=== PATIENT | male | born 1950 | race Caucasian/White ===

== ENCOUNTER 2018-12-15 23:54 | Emergency (ER) | payer MEDICARE, OTHER ==
[2018-12-16 00:04] VITALS: RESP 18
[2018-12-16] MEDS ORDERED: SODIUM CHLORIDE 0.9% 1,000 ML IV STA ×2 (00:30)
[2018-12-16] MEDS ORDERED: LABETALOL SYRINGE 5 MG/ML IVP STA (00:32)
--- NOTE | 2018-12-16 00:54 | ED ---
Recheck HPI - General Chief Complaint: Recheck/Abnormal Lab/Rx Stated Complaint: High blood pressure Time Seen by Provider: 12/16/18 00:06 Source: patient, RN notes reviewed, old records reviewed Mode of arrival: ambulatory Limitations: no limitations - History of Present Illness Initial Comments: Kalpesh is a 68-year-old male who presents today with concerns for elevated blood pressure. Patient reports that he was going to his primary care doctor's office earlier this week for evaluation for increased forgetfulness throughout the day. He reports he's been having this for the past 2 weeks. Patient presents today after the total diagnosed with high blood pressure that time. They sent him home with a blood pressure cuff. Patient has been monitoring his blood pressure and throughout the past 4 days they've been elevated. They've been up to 210/120. Patient has history of hypothyroid after thyroidectomy and does take thyroid replacement pills. He denies chest pain shortness of breath. He denies significant headache. Patient states she's been in his room us. In mood. He states that he has no abdominal pain arm pain or paresthesias. - Related Data Previous Rx's Medication Instructions Recorded amLODIPine [Norvasc] 5 mg PO DAILY #14 tab 12/16/18 Allergies Allergy/AdvReac Type Severity Reaction Status Date / Time No Known Allergies Allergy Verified 12/16/18 00:04 Review of Systems ROS Statement: Those systems with pertinent positive or pertinent negative responses have been documented in the HPI. ROS Other: All systems not noted in ROS Statement are negative. Past Medical History Past Medical History: Hypertension, Thyroid Disorder History of Any Multi-Drug Resistant Organisms: None Reported Additional Past Surgical History / Comment(s): Thyroid removed. Past Psychological History: No Psychological Hx Reported Smoking Status: Never smoker Past Alcohol Use History: None Reported Past Drug Use History: None Reported General Exam Limitations: no limitations General appearance: alert, in no apparent distress Head exam: Present: atraumatic, normocephalic, normal inspection Eye exam: Present: normal appearance, PERRL, EOMI. Absent: scleral icterus, conjunctival injection, periorbital swelling ENT exam: Present: normal exam, mucous membranes moist Neck exam: Present: normal inspection. Absent: tenderness, meningismus, lymphadenopathy Respiratory exam: Present: normal lung sounds bilaterally. Absent: respiratory distress, wheezes, rales, rhonchi, stridor Cardiovascular Exam: Present: regular rate, normal rhythm, normal heart sounds, systolic murmur. Absent: diastolic murmur, rubs, gallop, clicks GI/Abdominal exam: Present: soft, normal bowel sounds. Absent: distended, tenderness, guarding, rebound, rigid Extremities exam: Present: normal inspection, full ROM, normal capillary refill. Absent: tenderness, pedal edema, joint swelling, calf tenderness Back exam: Present: normal inspection Neurological exam: Present: alert, oriented X3, CN II-XII intact Psychiatric exam: Present: normal affect, normal mood Skin exam: Present: warm, dry, intact, normal color. Absent: rash Course Vital Signs 12/16/18 12/16/18 00:00 01:49 Temperature 98.5 F Pulse Rate 86 68 Respiratory 18 18 Rate Blood Pressure 209/124 176/93 O2 Sat by Pulse 97 96 Oximetry Medical Decision Making - Medical Decision Making 68-year-old male presents emergency murmurs they have persistent hypertension. He reports that he was told he is hypertensive 4 days ago. She has been monitoring his blood pressure at home with cough. He wrecked the emergency department with blood pressure 200/120. Also complains of past 4 weeks he has been having increased forgetfulness. The Patient has no neurological deficits. Otherwise appears well. Alert and oriented 3. He denies any chest pain or any other symptoms. EKG was reviewed. Negative for any acute abnormalities. No ST changes. Patient again denies chest pain. I Do hear a systolic murmur grade's 2 out of 6. Patient is has never been told he has a heart murmur before. Patient was given 20 mg of IV labetalol. Blood pressure came down to 176/90. I did not want to drop blood pressure much lower, only wanting a 20 -30 % decrease in MAP. Patient's kidney function was reviewed and normal. Chest x- ray shows no acute process. CT of the brain shows chronic ischemic vessel disease and cerebral atrophy. No acute abnormalities. Patient was informed of all these results. I discussed the Patient will be started on Norvasc and close follow-up with his primary care physician. He does have an appointment this week. Patient agrees to treatment plan will comply. Strict return parameters were discussed. I discussed the case with Dr. HESS. - Lab Data Result diagrams: 12/16/18 01:01 Lab Results 12/16/18 12/16/18 Range/Units 01:01 01:20 Sodium 137 (137-145) mmol/L Potassium 4.2 (3.5-5.1) mmol/L Chloride 108 H (98-107) mmol/L Carbon Dioxide 19 L (22-30) mmol/L Anion Gap 10 mmol/L BUN 12 (9-20) mg/dL Creatinine 0.80 (0.66-1.25) mg/dL Est GFR (CKD-EPI)AfAm >90 (>60 ml/min/1.73 sqM) Est GFR (CKD-EPI)NonAf >90 (>60 ml/min/1.73 sqM) Glucose 123 H (74-99) mg/dL Calcium 9.0 (8.4-10.2) mg/dL Magnesium 1.9 (1.6-2.3) mg/dL Total Bilirubin 0.7 (0.2-1.3) mg/dL AST 50 (17-59) U/L ALT 41 (21-72) U/L Alkaline Phosphatase 66 (38-126) U/L Total Protein 7.5 (6.3-8.2) g/dL Albumin 4.1 (3.5-5.0) g/dL Urine Color Light Yellow Urine Appearance Clear (Clear) Urine pH 5.5 (5.0-8.0) Ur Specific [place] 1.005 (1.001-1.035) Urine Protein Negative (Negative) Urine Glucose (UA) Negative (Negative) Urine Ketones Negative (Negative) Urine Blood Negative (Negative) Urine Nitrite Negative (Negative) Urine Bilirubin Negative (Negative) Urine Urobilinogen <2.0 (<2.0) mg/dL Ur Leukocyte Esterase Negative (Negative) 12/16/18 01:48 EKG shows normal sinus rhythm with possible left atrial enlargement. Anterior sick for second block. Left ventricular hypertrophy. Prolonged QT. Ventricular rate of 80 bpm. Was 184. QRS ration 116. QTQTC of 424/49 ms. - Radiology Data Radiology results: report reviewed Chest x-ray. No changes. Cervical atrophy and chronic small vessel ischemia. No acute intracranial normality. Disposition Clinical Impression: Hypertension Disposition: HOME SELF-CARE Condition: Good Instructions: Hypertension (ED) Additional Instructions: He should monitor your blood pressure throughout the day, especially with starting this new blood pressure medication. Patient should have follow-up with cardiology and primary care physician. Return to the emergency department if any alarming signs or symptoms occur. Prescriptions: amLODIPine [Norvasc] 5 mg PO DAILY #14 tab Is patient prescribed a controlled substance at d/c from ED?: No Referrals: [facility],Clinic [Primary Care Provider] - 1-2 days Time of Disposition: 02:17
[2018-12-16 01:21] LABS: Anion Gap 10 mmol/L; Carbon Dioxide 19 mmol/L (22-30); Chloride 108 mmol/L (98-107); Glucose 123 mg/dL (74-99); Sodium 137 mmol/L (137-145)
[2018-12-16 01:23] LABS: AST 50 U/L (17-59); Albumin 4.1 g/dL (3.5-5.0); Blood Urea Nitrogen 12 mg/dL (9-20); Magnesium 1.9 mg/dL (1.6-2.3); Potassium 4.2 mmol/L (3.5-5.1); Total Bilirubin 0.7 mg/dL (0.2-1.3); Total Protein 7.5 g/dL (6.3-8.2)
[2018-12-16 01:24] LABS: ALT 41 U/L (21-72); Alkaline Phosphatase 66 U/L (38-126)
[2018-12-16 01:34] LABS: Appearance,Urine Clear (Clear); Bilirubin,Urine Negative (Negative); Blood,Urine Negative (Negative); Color,Urine Light Yellow; Glucose,Urine (UA) Negative (Negative); Ketones,Urine Negative (Negative); Leukocyte Esterase,Urine Negative (Negative); Nitrite,Urine Negative (Negative); PH, Urine 5.5 (5.0-8.0); Protein,Urine Negative (Negative); Specific Gravity,Urine 1.005 (1.001-1.035); Urobilinogen,Urine <2.0 mg/dL (<2.0)
--- NOTE | 2018-12-16 01:41 | XR ---
EXAMINATION TYPE: XR chest 2V DATE OF EXAM: 12/16/2018 COMPARISON: 04/28/2014 HISTORY: Hypertension chest pain TECHNIQUE: Frontal and lateral views of the chest are obtained. FINDINGS: Heart and mediastinum are normal. Lungs are clear. Diaphragm is normal. There are chest le ads. Bony thorax is intact. IMPRESSION: Normal chest. No change.
--- NOTE | 2018-12-16 01:44 | CT ---
EXAMINATION TYPE: CT brain wo con DATE OF EXAM: 12/16/2018 COMPARISON: None HISTORY: hypertension headache CT DLP: 1099.4 mGycm Automated exposure control for dose reduction was used. FINDINGS: There is cerebral cortical atrophy. There is patchy hypodensity in the periventricular white matter. There is no mass effect nor midline shift. There is no sign of intracranial hemorrhage. The calvarium is intact. IMPRESSION: CEREBRAL ATROPHY AND CHRONIC SMALL VESSEL ISCHEMIA. NO ACUTE INTRACRANIAL ABNORMALITY.
[2018-12-16 01:51] VITALS: BP 176/93
[2018-12-16 06:00] VITALS: PULSE 80
[2018-12-16 06:01] VITALS: TEMP 97.7
== END 2018-12-16 02:47 | disposition home or self-care (01) ==
LOC: EC 23:54
DX: I10 Essential (primary) hypertension (principal); I67.82 Cerebral ischemia; G31.9 Degenerative disease of nervous system, unspecified
CPT/HCPCS: 36415; 70450; 71046; 80053; 81003; 83735; 93005; 96361; 96374; 99284

== ENCOUNTER → 2019-04-03 | Outpatient (CLI) | payer OTHER ==
--- NOTE | 2019-04-03 22:08 | CT ---
EXAMINATION TYPE: CT angio chest DATE OF EXAM: 04/03/2019 COMPARISON: NONE HISTORY: Pt states US has shown leaky bicuspid aortic valve. Hx hypertension CT DLP: 442.80 mGycm. Automated Exposure Control for Dose Reduction was Utilized. CONTRAST: CTA scan of the thorax is performed with IV Contrast, patient injected with 100 mL of Isovue 370, pul monary embolism protocol. 3-D reconstructed Images are created on an independent workstation and revi ewed. FINDINGS: LUNGS: The lungs are grossly clear, there is no concerning parenchymal mass or nodule identified. T here is no pleural effusion or pneumothorax seen. The tracheobronchial tree is patent. MEDIASTINUM: There are no greater than 1 cm hilar or mediastinal lymph nodes. Prominent but subcenti meter anterior superior mediastinal lymph node noted image 15. No cardiomegaly or pericardial effusio n is seen. Coronary artery calcification is present which is noted marker frontal and coronary artery disease. Main pulmonary artery at bifurcation measures 2.9 cm axial image 28. The descending aorta m easures up to 3.1 cm in diameter. There is normal 3 vessel origins from arch. No aneurysmal change an d arch or descending aorta is present. Thyroid gland is small in size or atrophic in appearance, roxy elate clinically OTHER: Liver is diffusely low dense consistent with fatty infiltration. There is prominent 4.5 cm gas tric diverticulum with air-fluid level near region of left adrenal gland axial image 58. Moderate-to- severe multilevel spurring in the thoracic spine is present. IMPRESSION: No aneurysmal change of the aorta. No cardiomegaly or left ventricular hypertrophy identi fied.
== END ==
LOC: RADCTMAIN 17:13
PROVIDERS: ATTEND Internal Medicine Interventional Cardiology
DX: Q23.1 Congenital insufficiency of aortic valve (principal)
CPT/HCPCS: 71275; Q9967

== ENCOUNTER → 2019-04-10 | Outpatient (CLI) | payer OTHER ==
--- NOTE | 2019-04-10 20:16 | CONS ---
CONSULTATION . DATE OF SERVICE: 04/10/2019 68-year-old gentleman has been evaluated in the sleep center for possible obstructive sleep apnea-hypopnea syndrome HISTORY OF PRESENT ILLNESS/SLEEP WAKE EVALUATION: Patient usual sleep schedule from 10 p.m. to 6:30 a.m. basically 7 days a week. No problem with falling asleep. No TV in bedroom, usually sleeps on the side position. The patient sleeps by himself. Presently, he knows that he has history of loud snoring in the past. Presently, he wakes up from sleep 1-2 times with nocturia. In the morning sometimes feels tiredness and sleepiness. [place] Sleepiness Scale is 3. PAST MEDICAL HISTORY: Positive for hypertension, sinus problems, hypothyroidism after thyroidectomy. PAST SURGICAL HISTORY: Thyroidectomy, nasal surgery. MEDICATIONS: Synthroid, metoprolol, naproxen, hydrochlorothiazide, amlodipine. SOCIAL HISTORY: Negative for smoking. Alcohol consumption rarely. FAMILY HISTORY: Family history: Hypertension, heart problems and hyperlipidemia. REVIEW OF SYSTEMS: Awakenings from sleep, sometimes tiredness and sleepiness after awakening during the day. PHYSICAL EXAM: gentleman without distress. BP 140/79, HR 72, RR 16, height 5 feet 10 inches, weight 206.8 pounds, body mass index 29.7, temperature 97.1, oxygen saturation at room air 95%. Oropharynx extremely low position of soft palate. Mallampati 4. Restriction of nasal breathing. Wide neck, 17 and one half inches in circumference. Neck Supple, no JVD. Thyroid is not palpable. LUNGS Clear to percussion and to auscultation. Good air exchange. No wheezing or rhonchi. HEART S1, S2 regular. Systolic murmur. ABDOMEN: Slightly obese. Soft and nontender. Bowel sounds are present. No organomegaly appreciated. EXTREMITIES No clubbing or cyanosis. [employer] Awake, alert, and oriented X3. Cranial nerves 2 to 7 intact. There is no fasciculation or atrophy. noted. No focal deficits observed. IMPRESSION: 1. Snoring, awakenings from sleep, extremely low position of soft palate, wide neck episodes of sleepiness during the day, obstructive sleep apnea-hypopnea syndrome. 2. Overweight, borderline to obesity, body mass index 29.7. 3. Hypertension. 4. Hypothyroidism after thyroidectomy more than 20 years ago. 5. Status post nasal surgery. 6. Restriction of nasal breathing, possibly nasal septum deviation. 7. Shoulder problems. PLAN: 1. Polysomnography for evaluation of patient's breathing during sleep. 2. CPAP/BiPAP titration if sleep study confirms obstructive sleep apnea-hypopnea syndrome. 3. Preferable position during sleep on the side. 4. No driving if patient feels any sleepiness. 5. I will see patient for follow up visit to explain results of testing and following plan. 6. Followup visit after sleep study to discuss results of the sleep study and possibly fit the patient with the mask she has history of . Scott Krishna MD, PhD, FAASM Diplomat of [employer] [facility] [facility] [place] MMODL / IJN: [id number] /
== END ==
LOC: SLEEP 13:43
PROVIDERS: ATTEND Internal Medicine
DX: G47.33 Obstructive sleep apnea (adult) (pediatric) (principal); I10 Essential (primary) hypertension; E89.0 Postprocedural hypothyroidism; J98.8 Other specified respiratory disorders; R29.898 Other symptoms and signs involving the musculoskeletal system; E66.9 Obesity, unspecified; Z68.29 Body mass index [BMI] 29.0-29.9, adult; Z98.890 Other specified postprocedural states; Z79.899 Other long term (current) drug therapy
CPT/HCPCS: 99211

== ENCOUNTER 2021-12-06 09:28 | Inpatient (IN) | payer OTHER, MEDICARE ==
--- NOTE | 2021-12-06 10:17 | ED ---
General Adult HPI - General Chief complaint: Eye Problems Stated complaint: vision loss, right eye Time Seen by Provider: 12/06/21 09:48 Source: patient, RN notes reviewed, old records reviewed Mode of arrival: ambulatory Limitations: no limitations - History of Present Illness Initial comments: 71-year-old male presenting with chief complaint of visual loss. Symptoms began yesterday morning when the patient woke. He states that there is a large sec tion of his central vision in only his right eye that was opaque and hazy. He denies pain. Denies injury. Patient had no previous eye complaints. He denies any headache. Denies fever. Denies any unilateral numbness or weakness. He is not on any anticoagulation, no antiplatelet medications. No injury to the eye. - Related Data Home Medications Medication Instructions Recorded Confirmed Ascorbic Acid [Vitamin C] 500 mg PO DAILY 12/06/21 12/06/21 Cholecalciferol [Vitamin D3 (25 25 mcg PO DAILY 12/06/21 12/06/21 Mcg = 1000 Iu)] Cyanocobalamin (Vitamin B-12) 1,000 mcg PO DAILY 12/06/21 12/06/21 [Vitamin B-12] Levothyroxine Sodium [Synthroid] 150 mcg PO DAILY 12/06/21 12/06/21 amLODIPine [Norvasc] 10 mg PO DAILY 12/06/21 12/06/21 Allergies Allergy/AdvReac Type Severity Reaction Status Date / Time No Known Allergies Allergy Verified 12/06/21 12:22 Review of Systems ROS Statement: Those systems with pertinent positive or pertinent negative responses have been documented in the HPI. ROS Other: All systems not noted in ROS Statement are negative. Past Medical History Past Medical History: Hypertension, Thyroid Disorder History of Any Multi-Drug Resistant Organisms: None Reported Additional Past Surgical History / Comment(s): Thyroid removed. Past Psychological History: No Psychological Hx Reported Smoking Status: Never smoker Past Alcohol Use History: None Reported Past Drug Use History: None Reported General Exam Limitations: no limitations General appearance: alert, in no apparent distress Head exam: Present: atraumatic, normocephalic Eye exam: Present: normal appearance, PERRL, EOMI, other (Patient has bilateral pupillary response. On gross visual field testing he has central deficit in the right eye only. Extraocular motions are intact.) Neck exam: Present: normal inspection. Absent: tenderness, meningismus Respiratory exam: Present: normal lung sounds bilaterally. Absent: respiratory distress, wheezes Cardiovascular Exam: Present: regular rate, normal rhythm GI/Abdominal exam: Present: soft. Absent: distended, tenderness Extremities exam: Present: normal inspection, normal capillary refill. Absent: pedal edema Neurological exam: Present: alert, oriented X3, CN II-XII intact. Absent: motor sensory deficit Psychiatric exam: Present: normal affect, normal mood Skin exam: Present: warm, dry, intact. Absent: cyanosis, diaphoretic Course Vital Signs 12/06/21 12/06/21 12/06/21 09:29 10:25 11:00 Temperature 97.7 F Pulse Rate 84 51 L 67 Respiratory 18 18 18 Rate Blood Pressure 174/84 177/91 148/91 O2 Sat by Pulse 98 100 96 Oximetry 12/06/21 13:00 Temperature Pulse Rate 72 Respiratory 18 Rate Blood Pressure 162/102 O2 Sat by Pulse 98 Oximetry - Reevaluation(s) Reevaluation #1: 12/06/21 [address] Cammy hubbard for neurology. He recommends admission for MRI, both neurology consultation as well as ophthalmology consultation. Op hthalmology has been paged regarding this patient. EKG Findings - EKG Comments: EKG Findings:: EKG: Sinus rhythm with PVC, left axis nonspecific intraventricular block no ST segment elevation, rate of 72, IN interval 190, QRS duration 134, QTC 495 Medical Decision Making - Medical Decision Making 71-year-old male with right eye vision loss which occurred yesterday morning when he woke up. The onset was greater than 24 hours. He has no other focal neurological findings. CT of the brain is negative for intracranial hemorrhage, does show volume loss. CT angiography performed which shows 70% stenosis of the right ICA. Patient had initially planned to see ophthalmology today as an outpatient. After discussion with neurology was recommended that the patient be admitted for further evaluation and treatment. Intraocular pressures are 17 bilaterally Ophthalmology has been paged. Overall the patient's symptoms are improving his vision has not completely returned to normal but is improving in the right eye. - Lab Data Result diagrams: 12/06/21 10:21 12/06/21 10:21 Lab Results 12/06/21 12/06/21 12/06/21 Range/Units 10:21 10:21 10:21 WBC 6.2 (3.8-10.6) k/uL RBC 4.81 (4.30-5.90) m/uL Hgb 16.1 (13.0-17.5) gm/dL Hct 47.4 (39.0-53.0) % MCV 98.4 (80.0-100.0) fL MCH 33.4 (25.0-35.0) pg MCHC 33.9 (31.0-37.0) g/dL RDW 13.9 (11.5-15.5) % Plt Count 231 (150-450) k/uL MPV 7.5 Neutrophils % 59 % Lymphocytes % 29 % Monocytes % 7 % Eosinophils % 2 % Basophils % 1 % Neutrophils # 3.7 (1.3-7.7) k/uL Lymphocytes # 1.8 (1.0-4.8) k/uL Monocytes # 0.4 (0-1.0) k/uL Eosinophils # 0.1 (0-0.7) k/uL Basophils # 0.0 (0-0.2) k/uL PT 10.9 (9.0-12.0) sec INR 1.0 (<1.2) APTT 24.4 (22.0-30.0) sec Sodium 136 L (137-145) mmol/L Potassium 3.9 (3.5-5.1) mmol/L Chloride 104 (98-107) mmol/L Carbon Dioxide 21 L (22-30) mmol/L Anion Gap 11 mmol/L BUN 16 (9-20) mg/dL Creatinine 0.95 (0.66-1.25) mg/dL Est GFR (CKD-EPI)AfAm >90 (>60 ml/min/1.73 sqM) Est GFR (CKD-EPI)NonAf 80 (>60 ml/min/1.73 sqM) Glucose 117 H (74-99) mg/dL Calcium 9.6 (8.4-10.2) mg/dL Total Bilirubin 1.0 (0.2-1.3) mg/dL AST 39 (17-59) U/L ALT 31 (4-49) U/L Alkaline Phosphatase 51 (38-126) U/L C-Reactive Protein <0.5 (<1.0) mg/dL Total Protein 7.2 (6.3-8.2) g/dL Albumin 4.3 (3.5-5.0) g/dL Disposition Clinical Impression: Vision loss Disposition: ADMITTED IP TO THIS [facility] Condition: Stable Is patient prescribed a controlled substance at d/c from ED?: No Referrals: [facility],Clinic [Primary Care Provider] - 1-2 days Decision to Admit Reason: Admit from EC Decision Date: 12/06/21 Decision Time: 13:12
[2021-12-06 10:49] LABS: Basophils % (A) 1 %; Eosinophils # (A) 0.1 k/uL (0-0.7); Eosinophils % (A) 2 %; HCT 47.4 % (39.0-53.0); HGB 16.1 gm/dL (13.0-17.5); Lymphocytes # (A) 1.8 k/uL (1.0-4.8); Lymphocytes % (A) 29 %; MCH 33.4 pg (25.0-35.0); MCHC 33.9 g/dL (31.0-37.0); MCV 98.4 fL (80.0-100.0); Mean Platelet Volume 7.5; Monocytes # (A) 0.4 k/uL (0-1.0); Monocytes % (A) 7 %; Neutrophils # (A) 3.7 k/uL (1.3-7.7); Neutrophils % (A) 59 %; Platelet Count 231 k/uL (150-450); RBC 4.81 m/uL (4.30-5.90); RDW 13.9 % (11.5-15.5); WBC 6.2 k/uL (3.8-10.6)
[2021-12-06 10:57] LABS: ALT 31 U/L (4-49); AST 39 U/L (17-59); African American GFR (CKD) >90 (>60 ml/min/1.73 sqM); Albumin 4.3 g/dL (3.5-5.0); Alkaline Phosphatase 51 U/L (38-126); Anion Gap 11 mmol/L; Blood Urea Nitrogen 16 mg/dL (9-20); C Reactive Protein <0.5 mg/dL (<1.0); Calcium 9.6 mg/dL (8.4-10.2); Carbon Dioxide 21 mmol/L (22-30); Chloride 104 mmol/L (98-107); Glucose 117 mg/dL (74-99); Non-African American GFR(CKD) 80 (>60 ml/min/1.73 sqM); Potassium 3.9 mmol/L (3.5-5.1); Sodium 136 mmol/L (137-145); Total Protein 7.2 g/dL (6.3-8.2)
[2021-12-06 11:01] LABS: Partial Thromboplastin Time 24.4 sec (22.0-30.0); Prothrombin Time 10.9 sec (9.0-12.0)
--- NOTE | 2021-12-06 11:43 | CT ---
EXAMINATION TYPE: CT brain wo con DATE OF EXAM: 12/06/2021 COMPARISON: 12/16/2018 HISTORY: right eye vision loss CT DLP: 1060 mGycm Automated exposure control for dose reduction was used. FINDINGS: There is moderate generalized degenerative change of the greater frontal lobe component. Slightly gre ater central ventricular dilation could be associated with with hydrocephalus or normal pressure hydr ocephalus but appears similar to the prior exam. There is diffuse low-attenuation in the white matter which is not. Calvarium is intact. Craniocervical junction is maintained. Sella turcica has a normal appearance. In tracranial atherosclerotic changes noted. Sinuses are clear. Orbits are symmetric. IMPRESSION: DEGENERATIVE AND NONSPECIFIC WHITE MATTER CHANGES MOST TYPICAL REMOTE ISCHEMIA. IF CONCERN FOR ACUTE ISCHEMIA CORRELATE WITH MRI CLINICALLY WARRANTED. GREATER CENTRAL VENTRICULAR DILATION COULD BE SOCIATED WITH NORMAL PRESSURE HYDROCEPHALUS CORRELATE CLINICALLY.
--- NOTE | 2021-12-06 11:52 | CT ---
EXAMINATION TYPE: CT angio head neck DATE OF EXAM: 12/06/2021 HISTORY: right eye vision loss COMPARISON: CT DLP: 576.7 mGycm. Automated Exposure Control for Dose Reduction was Utilized. TECHNIQUE: CTA scan of the neck is performed with IV Contrast, patient injected with 65 mL of Isovue 370, axial images are obtained, coronal and sagittal reformatted images are reviewed. 3D reconstruct ed images are created on an independent workstation and reviewed. FINDINGS: There is a 1.4 cm soft tissue subcutaneous nodule posterior to the lower cervical spine whi ch is indeterminate. Lung apices are clear. Atherosclerotic change at the origin of the left subclavi an artery. There is dense atherosclerotic change of the common carotid artery and carotid bifurcation bilaterall y. Approximate 70% stenosis near the origin of the right common carotid artery no definite significan t stenosis on the left. Intracranially is no diagnostic evidence of aneurysm or vascular malformation. Visualized vertebral b asilar and carotid systems enhance normally. Anterior cerebral, middle cerebral posterior cerebral ar teries appear to be patent. A generalized degenerative change and nonspecific white matter changes ar e again noted is previously described suggestive of remote white matter ischemia. IMPRESSION: 1. Findings suggest a significant approximate 70% stenosis at the origin of the right internal caroti d artery. 2. No evidence of intracranial sizable aneurysm or vascular malformation. NASCET criteria was used in interpretation of this exam?
[2021-12-06] MEDS ORDERED: ASPIRIN 325 MG TAB PO STA (11:54)
[2021-12-06] MEDS: SODIUM CHLORIDE 0.9% 1,000 ML IV SCH (15:37)
--- NOTE | 2021-12-06 16:24 | P.CNNES ---
History of Present Illness Consult date: 12/06/21 Requesting physician: Moses Johnson Reason for Consult: Stroke, right eye History of Present Illness: Patient is a 71-year-old right-handed male, who came to the hospital this morning at 9:28 AM for evaluation of visual disturbance right eye. Patient states that yesterday morning he was watching TV, when at around 10:30 AM, he noticed problem with his right eye. He couldn't see properly. He saw opaque block, "fairly good size", preventing seeing fully from the right eye. He denied any symptom with his left eye. Denied any focal neurological symptoms whatsoever. Denied headache, slurred speech facial droop or any numbness tingling. He tried to speak to [facility], who could not take him in. He tried to contact [facility] where he often goes, who recommended him to go to the ER. Patient states that since yesterday, it is about 50% better, but still present. Vital signs on arrival blood pressure 174/84 pulse rate 84 temperature 97.7. Patient's blood test shows normal CBC, PT/PTT, sodium is 136 potassium 3.9, normal renal and hepatic panel. CRP negative. Cortes virus PCR negative. Computed tomography scan of head showed degenerative and nonspecific white matter changes most typical of remote ischemia. Greater central ventricular dilation could be associated with normal pressure hydrocephalus, correlate clinically. CTA of head and neck showed findings suggest a significant approximately 70% stenosis of the origin of right ICA. No evidence of intracranial sizable aneurysm or vascular malformation. EKG shows sinus rhythm with frequent PVCs. Left axis deviation. Patient's home medications include Synthroid, vitamin D, vitamin C, B12 and amlodipine 10 mg. Patient states he has history of hypertension "off and on" for last 3-4 years. Patient states that when he takes his blood pressure medications, he notices some side effects, which he describes as being "immobile, tired". He stopped taking blood pressure medication about 4-5 months ago. He is nonsmoker, denies diabetes. Denies hyperlipidemia. He does not take any antiplatelet medication. Review of Systems As mentioned in HPI. All other review of systems reviewed and unremarkable. He is hard of hearing. He states that he stays very active. Past Medical History Past Medical History: CVA/TIA, Hypertension, Osteoarthritis (OA), Pneumonia, Th yroid Disorder Additional Past Medical History / Comment(s): TIA, murmur, hypothyroid, enlarged adenoids as a child/exposed to xray to shrink History of Any Multi-Drug Resistant Organisms: None Reported Additional Past Surgical History / Comment(s): Thyroid removed, nasal fracture with surgery, sinus surgery with surgery for deviated septum, colonosocpy. Past Anesthesia/Blood Transfusion Reactions: No Reported Reaction Smoking Status: Former smoker - Past Family History Father Family Medical History: Cancer Additional Family Medical History / Comment(s): Father of pancreatic cancer at the age of 62 yrs. Mother Family Medical History: No Reported History Additional Family Medical History / Comment(s): Mother was healthy. Medications and Allergies Home Medications Medication Instructions Recorded Confirmed Type Ascorbic Acid [Vitamin C] 500 mg PO DAILY 12/06/21 12/06/21 History Cholecalciferol [Vitamin D3 (25 25 mcg PO DAILY 12/06/21 12/06/21 History Mcg = 1000 Iu)] Cyanocobalamin (Vitamin B-12) 1,000 mcg PO DAILY 12/06/21 12/06/21 History [Vitamin B-12] Levothyroxine Sodium [Synthroid] 150 mcg PO DAILY 12/06/21 12/06/21 History amLODIPine [Norvasc] 10 mg PO DAILY 12/06/21 12/06/21 History Allergies Allergy/AdvReac Type Severity Reaction Status Date / Time No Known Allergies Allergy Verified 12/06/21 12:22 Physical Examination - Vital Signs Vital Signs: Vital Signs Temp Pulse Resp BP Pulse Ox 12/06/21 13:00 72 18 162/102 98 12/06/21 11:00 67 18 148/91 96 12/06/21 10:25 51 L 18 177/91 100 12/06/21 09:29 97.7 F 84 18 174/84 98 Intake and Output 12/06/21 12/06/21 12/06/21 06:59 14:59 22:59 Other: Weight 86.183 kg Patient is an elderly male, very pleasant, in no acute distress. Patient is alert awake oriented to time place and person. Speech and language functions are normal. Patient can name and repeat very well, with no aphasia or dysarthria. Attention, concentration and fund of knowledge is adequate. On cranial examination, pupils are equal, round and reacting to light, visual hastings are full on confrontation, extraocular muscles are intact with no nystagmus. Face has very subtle flattening of the right nasolabial fold, but appears normal on active testing. His tongue protrudes to the midline. Palatal elevation and sensation normal, hearing is moderately decreased for finger rubbing and shoulder shrug normal, facial sensation normal. Shoulder shrug normal. On muscle strength testing, there is no pronator drift and the strength is normal in arms and legs distally and proximally, except right deltoid which is weak from some shoulder issues. Deep tendon reflexes are 1+ and plantars withdrawal bilaterally. Sensory to touch is equal with no neglect on double simultaneous stimulation. Cerebellar function showed no ataxia for [id number] testing. No dysdiadochokinesia. Tone and bulk of muscles normal. Gait normal. On general examination, there is left-sided carotid bruit, but no sounds audible on the right side. Patient has mild heart murmur, S1-S2 audible. Abdomen is soft nontender, positive bowel sounds with no organomegaly. Chest is clear. Peripheral pulses are present. No edema. Results - Laboratory Findings CBC and BMP: 12/06/21 10:21 12/07/21 06:32 Abnormal Lab Findings: Abnormal Labs 12/06/21 10:21 Sodium 136 L Carbon Dioxide 21 L Glucose 117 H Assessment and Plan Assessment: * New-onset visual scotoma right eye, in the central vision, rule out CVA versus retinal condition. Symptoms have improved 50%, but still present. * Right ICA stenosis, 70% at its origin, possible symptomatic * Hypertension * Medication noncompliance, stopped taking blood pressure medication 4-5 months ago. Plan: * Patient will undergo stroke workup including MRI of the brain, 2-D echo. * Fasting a.m. lipid panel, hemoglobin A1c. * We will check ESR, CRP, agree with checking B12, folate and TSH. * Patient was given aspirin 325 mg in the ER. Patient will be started on aspirin 81 mg daily. * Vascular surgical consultation for right ICA stenosis. * Telemetry monitoring. * Patient to follow up with ophthalmology in the morning as outpatient. * Neurology will follow. Thank you for the consult.
[2021-12-06] MEDS ORDERED: LORazepam 2 MG/ML INJ IV PRN ×2 (17:48→17:51)
--- NOTE | 2021-12-06 20:42 | P.HPIM ---
History of Present Illness This is a pleasant 71 years old male with past medical history of hypertension, hypothyroidism. And he follows up with [facility] who comes with sudden loss of vision in his right eye which is gradually improving now Patient states yesterday at 8:30 in the morning while he was watching TV he noticed he was losing focus and orthopedics sports was taken about 50-75% of his right eye vision, without associated headache or diplopia or blurred vision. No weakness or numbness. No difficulty talking or slurred speech. Because he got concerned [facility]. Today his vision is improving gradually and he estimates that his vision lashes now is around 25% on the right eye Vitas looks stable. Labs including CBC, INR, BMP and liver enzymes are unremarkable. CT of the brain: No acute process. Has degenerative changes, possible remote ischemia CTA of the head and neck: Findings suggest a significant approximate 70% stenosis of the origin of the right internal carotid artery. No evidence of intracranial sizable aneurysm or vascular malformation EKG showing sinus rhythm at [address]-T changes and frequent PVCs. QTC is 494. In the emergency room he received 1 dose of aspirin Review of Systems CONSTITUTIONAL: No fever, no malaise, no fatigue. HEENT: No recent visual problems or hearing problems. Denied any sore throat. CARDIOVASCULAR: No orthopnea, PND, no palpitations, no syncope. PULMONARY: No shortness of breath, no cough, no hemoptysis. GASTROINTESTINAL: No diarrhea, no nausea, no vomiting, no abdominal pain. Normoactive bowel sounds. NEUROLOGICAL: No headaches, no weakness, no numbness. HEMATOLOGICAL: Denies any bleeding or petechiae. GENITOURINARY: Denies any burning micturition, frequency, or urgency. MUSCULOSKELETAL/RHEUMATOLOGICAL: Denies any joint pain, swelling, or any muscle pain. ENDOCRINE: Denies any polyuria or polydipsia. Past Medical History Past Medical History: Hypertension, Thyroid Disorder History of Any Multi-Drug Resistant Organisms: None Reported Additional Past Surgical History / Comment(s): Thyroid removed. Past Psychological History: No Psychological Hx Reported Smoking Status: Never smoker Past Alcohol Use History: None Reported Past Drug Use History: None Reported - Past Family History Father Family Medical History: Cancer Additional Family Medical History / Comment(s): Father of pancreatic cancer at the age of 62 yrs. Mother Family Medical History: No Reported History Additional Family Medical History / Comment(s): Mother was healthy. Medications and Allergies Home Medications Medication Instructions Recorded Confirmed Type Ascorbic Acid [Vitamin C] 500 mg PO DAILY 12/06/21 12/06/21 History Cholecalciferol [Vitamin D3 (25 25 mcg PO DAILY 12/06/21 12/06/21 History Mcg = 1000 Iu)] Cyanocobalamin (Vitamin B-12) 1,000 mcg PO DAILY 12/06/21 12/06/21 History [Vitamin B-12] Levothyroxine Sodium [Synthroid] 150 mcg PO DAILY 12/06/21 12/06/21 History amLODIPine [Norvasc] 10 mg PO DAILY 12/06/21 12/06/21 History Allergies Allergy/AdvReac Type Severity Reaction Status Date / Time No Known Allergies Allergy Verified 12/06/21 12:22 Physical Exam Vitals: Vital Signs Temp Pulse Resp BP Pulse Ox 12/06/21 11:00 67 18 148/91 96 12/06/21 10:25 51 L 18 177/91 100 12/06/21 09:29 97.7 F 84 18 174/84 98 Intake and Output 12/05/21 12/06/21 12/06/21 22:59 06:59 14:59 Other: Weight 86.183 kg GENERAL: The patient is alert and oriented x3, not in any acute distress. Well developed, well nourished. HEENT: Pupils are round and equally reacting to light. EOMI. No scleral icterus. No conjunctival pallor. Normocephalic, atraumatic. No pharyngeal erythema. No thyromegaly. CARDIOVASCULAR: S1 and S2 present. No murmurs, rubs, or gallops. PULMONARY: Chest is clear to auscultation, no wheezing or crackles. ABDOMEN: Soft, nontender, nondistended, normoactive bowel sounds. No palpable organomegaly. MUSCULOSKELETAL: No joint swelling or deformity. EXTREMITIES: No cyanosis, clubbing, or pedal edema. -NEUROLOGICAL: Gross partial loss of vision in the right eye, rest of cranial nerves are grossly intact. Strength is 5/5. Sensation is intact in all extremities SKIN: No rashes. No petechiae Results CBC & Chem 7: 12/06/21 10:21 12/06/21 10:21 Labs: Abnormal Lab Results - Last 24 Hours (Table) 12/06/21 Range/Units 10:21 Sodium 136 L (137-145) mmol/L Carbon Dioxide 21 L (22-30) mmol/L Glucose 117 H (74-99) mg/dL Assessment and Plan Assessment: Sudden vision of the right eye, need stroke workup Right ICA stenosis by 70% Hypertension History of hypothyroidism Plan: This is a pleasant 71 years old male who presents with right eye vision loss with 70% stenosis of the right internal carotid artery. Continue with aspirin Neurology and vascular surgery consult Agricultural Science Professor consult Labs and medication were reviewed.. Continue same treatment. Continue with symptomatic treatment. Resume home medication. Monitor lytes and vitals. DVT and GI prophylaxis. Further recommendations depends on the clinical course of the patient DVT prophylaxis: Subcutaneous heparin GI Prophylaxis: Pepcid
[2021-12-06] MEDS: HEPARIN SODIUM,PORCINE/PF 5,000 UNIT/0.5 ML SYRINGE SQ SCH (21:06)
[2021-12-06] MEDS: FAMOTIDINE 20 MG/2 ML VIAL IV SCH (21:06)
[2021-12-07] MEDS: LEVOTHYROXINE 75 MCG TAB PO SCH (06:27)
[2021-12-07 07:08] LABS: African American GFR (CKD) 80 (>60 ml/min/1.73 sqM); Anion Gap 9 mmol/L; Blood Urea Nitrogen 16 mg/dL (9-20); Calcium 9.7 mg/dL (8.4-10.2); Carbon Dioxide 27 mmol/L (22-30); Chloride 104 mmol/L (98-107); Glucose 112 mg/dL (74-99); Non-African American GFR(CKD) 69 (>60 ml/min/1.73 sqM); Potassium 3.9 mmol/L (3.5-5.1); Sodium 140 mmol/L (137-145)
[2021-12-07] MEDS: SODIUM CHLORIDE 0.9% 1,000 ML IV SCH ×3 (09:29→23:50)
[2021-12-07] MEDS: FAMOTIDINE 20 MG/2 ML VIAL IV SCH (09:36)
[2021-12-07] MEDS: CYANOCOBALAMIN 500 MCG TAB PO SCH (09:39)
[2021-12-07] MEDS: ASCORBIC ACID 500 MG TAB PO SCH (09:40)
[2021-12-07] MEDS: CHOLECALCIFEROL 25 MCG (1000 IU) TABLET PO SCH (09:40)
[2021-12-07] MEDS: HEPARIN SODIUM,PORCINE/PF 5,000 UNIT/0.5 ML SYRINGE SQ SCH ×2 (09:41→20:24)
[2021-12-07] MEDS: amLODIPine 10 MG TAB PO SCH (09:41)
[2021-12-07] MEDS: ASPIRIN 81 MG PO SCH (09:41)
[2021-12-07 09:44] LABS: C Reactive Protein <0.5 mg/dL (<1.0)
--- NOTE | 2021-12-07 09:55 | US ---
EXAMINATION TYPE: US carotid duplex BILAT DATE OF EXAM: 12/07/2021 COMPARISON: NONE CLINICAL HISTORY: carotid stenosis. Visual disturbance in Right eye 3 days ago. EXAM MEASUREMENTS: RIGHT: Peak Systolic Velocity (PSV) cm/sec ----- Right CCA: 70.7 ----- Right ICA: 101 ----- Right ECA: 124 ICA/CCA ratio: 1.43 RIGHT: End Diastole cm/sec ----- Right CCA: 21.4 ----- Right ICA: 28.8 ----- Right ECA: 24.8 LEFT: Peak Systolic Velocity (PSV) cm/sec ----- Left CCA: 63.0 ----- Left ICA: 57.5 ----- Left ECA: 79.0 ICA/CCA ratio: 1.2 LEFT: End Diastole cm/sec ----- Left CCA: 19.0 ----- Left ICA: 18.5 ----- Left ECA: 12.5 VERTEBRALS (direction of flow): Right Vertebral: Antegrade Left Vertebral: Antegrade Rhythm: Normal Bilateral plaque seen No elevated velocities IMPRESSION: 1. Atherosclerotic changes with no significant hemodynamic stenosis as visualized. Criteria for Assigning % of Stenosis / Diameter reduction (Estimation based on the indirect measurements of the internal carotid artery velocities (ICA PSV). 1. Normal (no stenosis)=ICA PSV < 125 cm/s: ratio < 2.0: ICA EDV<40 cm/s. 2. Less than 50% stenosis=ICA PSV < 125 cm/s: ratio < 2.0: ICA EDV<40 cm/s. 3. 50 to 69% stenosis=ICA PSV of 125 to 230 cm/s: ration 2.0 ? 4.0: ICA EDV 40-100 cm/s. 4. Greater than 70% stenosis to near occlusion= ICA PSV > 230 cm/s: ratio > 4.0: ICA EDV > 100 cm/s. 5. Near occlusion= ICA PSV velocities may be low or undetectable: variable ratio and ICA EDV. 6. Total occlusion=unable to detect flow.
--- NOTE | 2021-12-07 11:01 | ECHOF ---
Referral Reason:CVA MEASUREMENTS -------- HEIGHT: 170.2 cm WEIGHT: 100.2 kg BP: 133/76 IVSd: 1.6 cm (0.6 - 1.1) LVIDd: 3.8 cm (3.9 - 5.3) LVPWd: 1.5 cm (0.6 - 1.1) IVSs: 1.8 cm LVIDs: 2.5 cm LVPWs: 2.2 cm LAESV Index (A-L): 44.65 ml/m Ao Diam: 3.3 cm (2.0 - 3.7) AV Cusp: 1.8 cm (1.5 - 2.6) LA Diam: 5.7 cm (2.7 - 3.8) MV EXCURSION: 15.243 mm (> 18.000) MV EF SLOPE: 25 mm/s (70 - 150) EPSS: 1.7 cm MV E Morro: 0.76 m/s MV DecT: 244 ms MV A Morro: 1.26 m/s MV E/A Ratio: 0.60 AV maxP.59 mmHg AV meanP.18 mmHg AR PHT: 508 ms RAP: 5.00 mmHg RVSP: 35.90 mmHg FINDINGS -------- Sinus rhythm. This was a technically adequate study. The left ventricular size is normal. There is moderate concentric left ventricular hypertrophy. O verall left ventricular systolic function is normal with, an EF between 55 - 60 %. The right ventricle is normal in size. LA is moderately dilated 34-39 ml/m2 The right atrial size is normal. Interatrial and interventricular septum intact. Trace to mild aortic regurgitation. There is severe aortic stenosis present. The maximum velocity across the aortic valve is 4.46m/s. Peak/mean gradient across the Aortic Valve is 79.59mmHg / 51.1 8mmHg. Moderate mitral annular calcification present. Mild mitral regurgitation is present. Mild tricuspid regurgitation present. There is mild pulmonary hypertension. The right ventricular systolic pressure, as measured by Doppler, is 35.90mmHg. There is no pulmonic regurgitation present. The aortic root size is normal. IVC Not well visulized. There is no pericardial effusion. CONCLUSIONS -------- 1. The left ventricular size is normal. 2. There is moderate concentric left ventricular hypertrophy. 3. Overall left ventricular systolic function is normal with, an EF between 55 - 60 %. 4. LA is moderately dilated 34-39 ml/m2 5. Trace to mild aortic regurgitation. 6. There is severe aortic stenosis present. 7. The maximum velocity across the aortic valve is 4.46m/s. 8. Peak/mean gradient across the Aortic Valve is 79.59mmHg / 51.18mmHg. 9. Moderate mitral annular calcification present. 10. Mild mitral regurgitation is present. 11. Mild tricuspid regurgitation present. 12. There is mild pulmonary hypertension. 13. The right ventricular systolic pressure, as measured by Doppler, is 35.90mmHg. STOCK HANDLER FLOORPERSON: Odalis Lilly RDCS
--- NOTE | 2021-12-07 11:13 | MR ---
EXAMINATION TYPE: MR brain wo con DATE OF EXAM: 12/07/2021 COMPARISON: CT brain from yesterday and older study from 2019. HISTORY: Rt eye visual disturbance, acute onset neuro deficit on admission yesterday. TECHNIQUE: Multiplanar, multisequence imaging of the brain and brainstem is performed without IV cont rast. FINDINGS: Diffusion weighted images demonstrate small focus of increased signal on diffusion-weighted images wh ich diminished signal on ADC mapping corresponding to 2 adjacent 3-4 mm focus along the right centra l sulcus image 208 series 303 and axial image 26. There appears to be precentral and postcentral invo lvement There is moderate ventricular and sulcal prominence redemonstrated. Focal and confluent areas of T2 h yperintensity throughout the superficial, deep, and periventricular white matter is again seen most p rominent periventricular levels. Old infarct right cerebellar level axial image 6 is redemonstrated u nchanged from 2019 CT Midline structures redemonstrate normal morphology. The craniocervical junction appears within lucinda l limits. Normal vascular flow voids are present. The visualized sinuses are clear and the globes are intact. IMPRESSION: 1. Focal acute lacunar infarcts along the right central sulcus are thought present. 2. Moderate diffuse cerebral atrophy with severe nonspecific white matter changes favored on the basi s of product of chronic small vessel ischemic change in patient of this age and old right cerebellar infarct all redemonstrated.
--- NOTE | 2021-12-07 13:37 | P.GSCN ---
History of Present Illness Consult date: 12/07/21 Reason for Consult: Right ICA stenosis Requesting physician: Moses E Sheet History of present illness: This is a pleasant 71-year-old male who presented to the emergency department after having loss of vision in his right eye which began on Sunday afternoon. States the vision has improved since Sunday and now there is an area of light pavon. He denies any other focal deficits. He has a past medical history includ ing CVA/TIA, hypertension, osteoarthritis, pneumonia, and thyroid disorder. The patient had a CT angiogram of the head and neck showing carotid stenosis therefore vascular surgery was consulted. The patient denies again any other focal deficits such as extremity weakness, difficulty with speech or swallowing, finding words her thoughts, he also denies any chest pain, shortness of breath, headaches, fevers or chills. CT of the brain that showed degenerative and nonspecific white matter changes most typical of remote ischemia. If concern for acute ischemia correlate with MRI as clinically warranted. Greater central ventricular dilation could be associated with normal pressure hydrocephalus correlate clinically CT angiogram head and neck findings suggest a significant approximate 70% s tenosis at the origin of the right internal carotid artery. No evidence of intracranial sizable aneurysm or vascular malformation. Review of Systems A 14 point review of systems was completed and all pertinent positives and negatives as stated in the HPI Past Medical History Past Medical History: Hypertension, Thyroid Disorder Additional Past Medical History / Comment(s): TIA, murmur, hypothyroid, enlarged adenoids as a child/exposed to xray to shrink History of Any Multi-Drug Resistant Organisms: None Reported Additional Past Surgical History / Comment(s): Thyroid removed. Past Anesthesia/Blood Transfusion Reactions: No Reported Reaction Past Psychological History: No Psychological Hx Reported Smoking Status: Never smoker Past Alcohol Use History: None Reported Past Drug Use History: None Reported - Past Family History Father Family Medical History: Cancer Additional Family Medical History / Comment(s): Father of pancreatic cancer at the age of 62 yrs. Mother Family Medical History: No Reported History Additional Family Medical History / Comment(s): Mother was healthy. Medications and Allergies Home Medications Medication Instructions Recorded Confirmed Type Ascorbic Acid [Vitamin C] 500 mg PO DAILY 12/06/21 12/06/21 History Cholecalciferol [Vitamin D3 (25 25 mcg PO DAILY 12/06/21 12/06/21 History Mcg = 1000 Iu)] Cyanocobalamin (Vitamin B-12) 1,000 mcg PO DAILY 12/06/21 12/06/21 History [Vitamin B-12] Levothyroxine Sodium [Synthroid] 150 mcg PO DAILY 12/06/21 12/06/21 History amLODIPine [Norvasc] 10 mg PO DAILY 12/06/21 12/06/21 History Allergies Allergy/AdvReac Type Severity Reaction Status Date / Time No Known Allergies Allergy Verified 12/06/21 12:22 Surgical - Exam Vital Signs Temp Pulse Resp BP Pulse Ox 97.7 F 84 18 174/84 98 12/06/21 09:29 12/06/21 09:29 12/06/21 09:29 12/06/21 09:29 12/06/21 09:29 General appearance: The patient is alert, oriented, in no acute distress. HET: Head is normocephalic and atraumatic. Pupils are equal and reactive. No carotid bruit Neck: Supple without lymphadenopathy. Trachea midline. No audible bruit. Heart: S1 S2. Regular rate and rhythm. Lungs: Clear to auscultation. No crackles or wheezes are heard. Abdomen: Soft, nontender, nondistended with bowel sounds. Extremities: No cyanosis, rash, ulceration, clubbing, or edema. Radial pulses +2 bilaterally Neurological: Decreased/impaired vision right eye. No other focal deficits appreciated. Patient is alert and oriented 3. Strength and sensation are grossly intact. Results - Labs 12/06/21 10:21 12/07/21 06:32 Abnormal Lab Results - Last 24 Hours (Table) 12/06/21 12/07/21 Range/Units 10:21 06:32 Sodium 136 L (137-145) mmol/L Carbon Dioxide 21 L (22-30) mmol/L Glucose 117 H 112 H (74-99) mg/dL Diabetes panel 12/06/21 12/07/21 Range/Units 10:21 06:32 Sodium 136 L 140 (137-145) mmol/L Potassium 3.9 3.9 (3.5-5.1) mmol/L Chloride 104 104 (98-107) mmol/L Carbon Dioxide 21 L 27 (22-30) mmol/L BUN 16 16 (9-20) mg/dL Creatinine 0.95 1.07 (0.66-1.25) mg/dL Glucose 117 H 112 H (74-99) mg/dL Calcium 9.6 9.7 (8.4-10.2) mg/dL AST 39 (17-59) U/L ALT 31 (4-49) U/L Alkaline Phosphatase 51 (38-126) U/L Total Protein 7.2 (6.3-8.2) g/dL Albumin 4.3 (3.5-5.0) g/dL Calcium panel 12/06/21 12/07/21 Range/Units 10:21 06:32 Calcium 9.6 9.7 (8.4-10.2) mg/dL Albumin 4.3 (3.5-5.0) g/dL Pituitary panel 12/06/21 12/07/21 Range/Units 10:21 06:32 Sodium 136 L 140 (137-145) mmol/L Potassium 3.9 3.9 (3.5-5.1) mmol/L Chloride 104 104 (98-107) mmol/L Carbon Dioxide 21 L 27 (22-30) mmol/L BUN 16 16 (9-20) mg/dL Creatinine 0.95 1.07 (0.66-1.25) mg/dL Glucose 117 H 112 H (74-99) mg/dL Calcium 9.6 9.7 (8.4-10.2) mg/dL Adrenal panel 12/06/21 12/07/21 Range/Units 10:21 06:32 Sodium 136 L 140 (137-145) mmol/L Potassium 3.9 3.9 (3.5-5.1) mmol/L Chloride 104 104 (98-107) mmol/L Carbon Dioxide 21 L 27 (22-30) mmol/L BUN 16 16 (9-20) mg/dL Creatinine 0.95 1.07 (0.66-1.25) mg/dL Glucose 117 H 112 H (74-99) mg/dL Calcium 9.6 9.7 (8.4-10.2) mg/dL Total Bilirubin 1.0 (0.2-1.3) mg/dL AST 39 (17-59) U/L ALT 31 (4-49) U/L Alkaline Phosphatase 51 (38-126) U/L Total Protein 7.2 (6.3-8.2) g/dL Albumin 4.3 (3.5-5.0) g/dL - Imaging Comments: Carotid ultrasound shows arthrosclerotic changes with no significant hemodynamic stenosis MRI brain shows focal acute lacunar infarcts along the right central sulcus. Moderate diffuse cerebral atrophy with severe nonspecific white matter changes favored on the basis of product of chronic small vessel ischemic change in the patient of this age and old right cerebellar infarct redemonstrated. Echocardiogram shows moderate concentric left ventricular hypertrophy. EF between 55 and 60%. LA moderately dilated, mild aortic regurgitation, severe aortic stenosis, mild mitral regurgitation, mild tricuspid regurgitation, mild pulmonary hypertension Assessment and Plan Assessment: 1. Right vision loss 2. No hemodynamically significant stenosis bilaterally. Right ICA and left ICA stenosis less than 50% per Carotid duplex up with discordant findings from CTA suggesting findings of 70% stenosis at the origin of the right ICA 3. History of TIA 4. History of hypertension 5. History of hyperlipidemia Plan: 1. Carotid ultrasound ordered 2. MRI ordered 3. Continue with recommendations from neurology 4. Continue aspirin, add statin 5. Further recommendations forthcoming Thank you for this consultation, and allowing us take part in the plan of care of your patient during his hospital stay The impression and plan of care has been dictated as directed. Dr. Avila I performed a history and examination of this patient, discussed the same with the dictator. I agree with the dictator's note ,documented as a scribe. Any additional findings or plans will be noted.
[2021-12-07 15:50] LABS: Chol/HDL Ratio 6.13 Ratio; LDL Cholesterol,Calculated 116.3 mg/dL (0.0-131.0)
[2021-12-07] MEDS: TROPICAMIDE 1% OPHTH DROPS 2 ML BTL RIGHT EYE SCH ×3 (16:27→23:56)
--- NOTE | 2021-12-07 16:40 | P.PN ---
Subjective Progress Note Date: 12/07/21 Patient was seen for a follow-up. Patient feels his right-sided visual symptoms have improved further. Still has a visual scotoma, appears cecocentral involving somewhat lower central and inferior region. Patient states that at first it started with a large rectangle in the visual field. Slowly it has started to shrink and became more circular and jagged edges. At this time it is a round cylindrical going from Center to the inferior visual field, with jagged edge. No other focal symptoms. No headache. Wants to go home. Objective - Vital Signs Vital signs: Vital Signs Temp 97.5 F L 12/06/21 17:56 Pulse 72 12/07/21 06:08 Resp 16 12/07/21 06:08 BP 158/84 12/07/21 06:08 Pulse Ox 98 12/07/21 06:08 Intake & Output 12/06/21 12/07/21 12/07/21 18:59 06:59 18:59 Weight 86.183 kg - Exam Patient's mental status, speech and language functions are normal. Cranial nerves are essentially normal. Visual hastings are full on confrontation in all 4 quadrants. Funduscopic examination was attempted on the right, but because of relatively small pupil, was difficult to visualize. Face is symmetric. Muscle strength shows no drift. The strength is normal. No ataxia. Tone and bulk of muscles normal sensations normal. - Labs CBC & Chem 7: 12/06/21 10:21 12/07/21 06:32 Labs: Abnormal Lab Results - Last 24 Hours (Table) 12/07/21 Range/Units 06:32 Glucose 112 H (74-99) mg/dL Assessment and Plan Assessment: * New-onset visual scotoma right eye, in the cecocentral vision, probable acute CVA in the retina. Symptoms have improved 50%, but still present. * Acute stroke, small size cortical involving the right central sulcus, likely embolic in nature (not lacunar). Patient has 2 different areas of ischemic stroke, both involving the right anterior circulation distribution. * Right ICA stenosis, 70% at its origin, possible symptomatic. However carotid Doppler showed no significant stenosis. * Hypertension * Hyperlipidemia * Medication noncompliance, stopped taking blood pressure medication 4-5 months ago. Plan: * MRI of the brain confirmed a small acute ischemic stroke, involving the right central sulcus. Likely embolic in nature. * 2-D echo revealed normal left ventricular size. Moderate concentric LVH. EF is between 55-60%. Left atrium is moderately dilated. Trace to mild AR. Severe aortic stenosis. Moderate mitral annular calcification. Suggest cardi ology consultation for severe aortic stenosis. * Carotid Doppler revealed atherosclerotic changes with no significant hemodynamic stenosis. Antegrade flow in both vertebral arteries. Significant discordant findings between CTA versus carotid Doppler ultrasound. Vascular surgery to follow. * Fasting a.m. lipid panel with cholesterol 193, LDL 116, HDL 31 and triglycerides 226. Patient will be started on Lipitor 40 mg daily. * Hemoglobin A1c 5.7. * ESR normal 11, CRP <0.5 normal. B12 581, folate 8.2. * Patient to be started on on dual antiplatelet medication for 21 days, then stop Plavix and continue aspirin 81 mg daily indefinitely. * Start Telemetry monitoring. * Ophthalmology consultation. * Discussed with Dr. Johnson in detail.
[2021-12-07] MEDS ORDERED: CLOPIDOGREL 75 MG TAB PO SCH (16:45)
--- NOTE | 2021-12-07 16:53 | P.PN ---
Subjective This is a pleasant 71 years old male with past medical history of hypertension, hypothyroidism. And [facility] comes with sudden loss of vision in his right eye which is gradually improving now Patient states yesterday at 8:30 in the morning while he was watching TV he noticed he was losing focus and orthopedics sports was taken about 50-75% of his right eye vision, without associated headache or diplopia or blurred vision. No weakness or numbness. No difficulty talking or slurred speech. Because he got concerned he contacted [facility] who [facility] him to [facility] emergency room. Today his vision is improving gradually and he estimates that his vision lashes now is around 25% on the right eye Vitas looks stable. Labs including CBC, INR, BMP and liver enzymes are unremarkable. CT of the brain: No acute process. Has degenerative changes, possible remote ischemia CTA of the head and neck: Findings suggest a significant approximate 70% stenosis of the origin of the right internal carotid artery. No evidence of intracranial sizable aneurysm or vascular malformation EKG showing sinus rhythm at [address]-T changes and frequent PVCs. QTC is 494. In the emergency room he received 1 dose of aspirin 12/07/2021 Patient states that his vision in the right eye still showing some spots but less than yesterday. No other complaints. Hemodynamically stable. MRI of the brain: Focal acute lacunar infarcts along the right central substance. Old right cerebellar infarct Carotid duplex no specific stenosis. per Vascular surgery no need for surgical intervention. Echocardiogram: Severe aortic stenosis, private sector executive was consulted. Plavix and Lipitor 40 mg daily. Patient continued on aspirin 81 mg daily. Pathology team were contacted by ER staff. This morning patient wanted to be discharged explained to him he is not medically stable or cleared for discharge and risks and benefits are explained to him extensively including but not limited to the risk of recurrent stroke, paralysis and loss of function. Later on he wanted to leave [facility] but bedside nurse Matteo Whitney. bharath and he agrees to stay for now. Other labs unremarkable including hemoglobin A1c 5.7%, ESR 11 and CRP less than 0.5. Other labs showing B12 581, folate 8.23 at lipid panel is done with LDL 116. Objective - Vital Signs Vital signs: Vital Signs Temp 97.5 F L 12/06/21 17:56 Pulse 72 12/07/21 06:08 Resp 16 12/07/21 06:08 BP 158/84 12/07/21 06:08 Pulse Ox 98 12/07/21 06:08 Intake & Output 12/06/21 12/07/21 12/07/21 18:59 06:59 18:59 Weight 86.183 kg - Exam GENERAL: The patient is alert and oriented x3, not in any acute distress. Well developed, well nourished. HEENT: Pupils are round and equally reacting to light. EOMI. No scleral icterus. No conjunctival pallor. Normocephalic, atraumatic. No pharyngeal erythema. No thyromegaly. CARDIOVASCULAR: S1 and S2 present. No murmurs, rubs, or gallops. PULMONARY: Chest is clear to auscultation, no wheezing or crackles. ABDOMEN: Soft, nontender, nondistended, normoactive bowel sounds. No palpable organomegaly. MUSCULOSKELETAL: No joint swelling or deformity. EXTREMITIES: No cyanosis, clubbing, or pedal edema. -NEUROLOGICAL: Gross neurological examination did not reveal any focal deficits. Partial loss of vision in the right eye SKIN: No rashes. no petechiae. - Labs CBC & Chem 7: 12/06/21 10:21 12/07/21 06:32 Labs: Abnormal Lab Results - Last 24 Hours (Table) 12/06/21 12/07/21 Range/Units 10:21 06:32 Sodium 136 L (137-145) mmol/L Carbon Dioxide 21 L (22-30) mmol/L Glucose 117 H 112 H (74-99) mg/dL Assessment and Plan Assessment: Sudden vision of the right eye, secondary to stroke Right ICA stenosis by 70%, however repeat carotid duplex showing stenosis less than 50% per vascular surgery. Noted for surgical intervention further recommendation Hypertension History of hypothyroidism Plan: This is a pleasant 71 years old male who presents with right eye vision loss with 70% stenosis of the right internal carotid artery. Continue with aspirin, Plavix was added. As well as Lipitor Neurology and vascular surgery consult cardiology consult for severe aortic stenosis Dieing Out Machine Operator consult Labs and medication were reviewed.. Continue same treatment. Continue with symptomatic treatment. Resume home medication. Monitor lytes and vitals. DVT and GI prophylaxis. Further recommendations depends on the clinical course of the patient DVT prophylaxis: Subcutaneous heparin GI Prophylaxis: Pepcid
[2021-12-07] MEDS: FAMOTIDINE 20 MG TAB PO SCH ×2 (20:24→20:25)
--- NOTE | 2021-12-07 20:33 | CONS ---
CONSULTATION DATE OF SERVICE: 12/07/2021 HISTORY: This is a 71-year-old white male who states that he woke up yesterday and noticed decreased vision in his right eye. The patient states that the central area of his vision was affected, and the peripheral vision seemed to be unaffected. He states that he could not read with the level of vision that he had initially. The patient went to the emergency room and was ultimately admitted to the floor with a diagnosis of decreased vision in his right eye. Since the patient woke up with this issue yesterday, he states that the vision has improved significantly in his right eye, and he believes that the blurred area has migrated further south and inferior in his vision to where it is not as noticeable any longer. Previous ocular history was significant for radial keratotomy surgery performed in both eyes and bilateral cataract surgery as well. PHYSICAL EXAMINATION: Visual acuity measured 20/40 OD and 20/25 OS. The pupils were equal and reactive to light. There was no afferent defect. Extraocular movements were full in all gaze positions. Evaluation of the anterior segments revealed normal-appearing lids. The conjunctivae were quiet. Both corneas were clear with the presence of radial keratotomy scars. Anterior chambers were well formed. The irises were normal and bilateral posterior chamber lens implants were noted as well. Dilated fundus exam was performed on the right eye only so as not to interfere with the pupil evaluations. A small vitreous hemorrhage was noted in the right eye inferior to the macula. IMPRESSION: Vitreous hemorrhage. I am unable to determine the source or cause of this, as bedside consult did not allow for further evaluation. I would recommend the patient follow up in my office upon discharge from the hospital and as soon as his evaluation here has been completed. MMODL / IJN: [id number] /
[2021-12-07] MEDS ORDERED: ATORVASTATIN 40 MG TAB PO SCH (21:00)
[2021-12-08] MEDS: TROPICAMIDE 1% OPHTH DROPS 2 ML BTL RIGHT EYE SCH ×2 (00:01)
[2021-12-08] MEDS: LEVOTHYROXINE 75 MCG TAB PO SCH (05:41)
[2021-12-08] MEDS: SODIUM CHLORIDE 0.9% 1,000 ML IV SCH (05:43)
[2021-12-08] MEDS: HEPARIN SODIUM,PORCINE/PF 5,000 UNIT/0.5 ML SYRINGE SQ SCH (08:35)
[2021-12-08] MEDS: ASPIRIN 81 MG PO SCH (08:35)
[2021-12-08] MEDS: amLODIPine 10 MG TAB PO SCH (08:35)
[2021-12-08] MEDS: ASCORBIC ACID 500 MG TAB PO SCH (10:12)
[2021-12-08] MEDS: CYANOCOBALAMIN 500 MCG TAB PO SCH (10:12)
[2021-12-08] MEDS: CHOLECALCIFEROL 25 MCG (1000 IU) TABLET PO SCH (10:12)
[2021-12-08] MEDS: FAMOTIDINE 20 MG TAB PO SCH (10:12)
[2021-12-08 10:18] VITALS: RESP 18
--- NOTE | 2021-12-08 11:05 | P.CRDCN ---
History of Present Illness History of present illness: HISTORY OF PRESENTING ILLNESS This is a pleasant 71-year-old male past medical history significant for hypertension, hypothyroidism status post thyroidectomy, TIA, former smoker, possible bicuspid aortic valve seen on prior echo in 2019, hypertension, mild to moderate aortic stenosis seen on echo in 2019. He does not follow currently with a kiss machine operator. Did see Dr. Holly in 07/2019, did not follow up afterwards. We have been asked to see in consultation for aortic stenosis. Patient presents to the emergency department with visual loss of the right eye. Patient was watching TV 12/05/21 in the morning, he noticed he could not see properly in his right eye. Denied any focal neurological symptoms. Denied headache, slurred speech facial droop or any numbness tingling. [facility]. He presented to the ER for further evaluation. Brain MRI revealed focal acute lacunar infarcts along the right central sulcus. Moderate diffuse cerebral atrophy with severe nonspecific white matter changes favored on the basis of chronic small vessel ischemic change, and old right cerebellar infarct redemonstrated. Patient seen and examined at bedside, he denies any chest pain, shortness of breath, lightheadedness, palpitations, dizziness, syncope or near syncope. His vital signs are stable. He endorses not following up with a kiss machine operator in reg ar[place] to his aortic stenosis. DIAGNOSTICS -EKG reveals sinus rhythm, heart rate 72, frequent PVCs, left axis deviation -Echocardiogram revealed EF 5560 percent, mild aortic regurgitation, severe aor tic stenosis with a peak/mean gradient of 79 mmHg/51 mmHg, mild mitral regurgitation, mild tricuspid regurgitation, mild pulmonary hypertension. -Previous Echocardiogram in 2019 revealed EF 55%, aortic stenosis with a peak gradient of 33 mmHg and mean gradient of 20 mmHg -CT angiogram head and neck findings suggest a significant approximate 70% stenosis at the origin of the right internal carotid artery. No evidence of intracranial sizable aneurysm or vascular malformation. -Carotid Dopplers revealed atherosclerotic changes with no significant hemodynamic stenosis. -Most recent Cardiolyte stress test in the office 05/2019 revealed no reversible defects and the ejection fraction is normal. -Telemetry tracings indicate sinus mechanism, no evidence of arrhythmia noted. -Laboratory reviewed, CBC unremarkable, sodium 140, potassium 3.9, BUN 16, serum creatinine 1.0, TSH is 0.48, triglycerides 226, cholesterol 193, LDL 116, HDL 31 -Current home medications include amlodipine 10 mg daily, Synthroid REVIEW OF SYSTEMS At the time of my exam: CONSTITUTIONAL: Denies fever or chills. CARDIOVASCULAR: Denies chest pain, shortness of breath, orthopnea, PND or palpitations. RESPIRATORY: Denies cough. GASTROINTESTINAL: Denies abdominal pain, diarrhea, constipation, nausea or vomiting. MUSCULOSKELETAL: Denies myalgias. NEUROLOGIC: Denies numbness, tingling, headacbe or weakness. +right visual changes ENDOCRINE: Denies fatigue, weight change, polydipsia or polyurina. GENITOURINARY: Denies burning, hematuria or urgency with micturation. HEMATOLOGIC: Denies history of anemia or bleeding. PHYSICAL EXAMINATION Vitals reviewed CONSTITUTIONAL: No apparent distress. HEENT: Head is normocephalic. Pupils are equal, round. Sclerae anicteric. Mucous membranes of the mouth are moist. No JVD. No carotid bruit. CHEST EXAMINATION: Lungs are clear to auscultation. No chest wall tenderness is noted on palpation or with deep breathing. HEART EXAMINATION: Regular rate and rhythm. S1, S2 heard. Systolic ejection murmur at right sternal border ABDOMEN: Soft, nontender. Positive bowel sounds. EXTREMITIES: 2+ peripheral pulses, no lower extremity edema and no calf tenderness. NEUROLOGIC EXAMINATION: Patient is awake, alert and oriented x3. ASSESSMENT New onset right eye visual changes Acute lacuna infarct seen on MRI Severe aortic stenosis Hypertension History of hypothyroidism status post thyroidectomy History of TIA PLAN Further management and work up for aortic stenosis will be done as an outpatient after recovery from CVA. Discussed to patient at length, importance of following up with Dr. Holly in the office in 1 week. Office will call patient with an appointment. No further workup as an inpatient from a cardiology perspective at this time. Please reach out with any further questions or concerns. Nurse Practitioner note has been reviewed, I agree with a documented findings and plan of care. Patient was seen and examined. Past Medical History Past Medical History: CVA/TIA, Hypertension, Osteoarthritis (OA), Pneumonia, Thyroid Disorder Additional Past Medical History / Comment(s): TIA, murmur, hypothyroid, enlarged adenoids as a child/exposed to xray to shrink History of Any Multi-Drug Resistant Organisms: None Reported Additional Past Surgical History / Comment(s): Thyroid removed, nasal fracture with surgery, sinus surgery with surgery for deviated septum, colonosocpy. Past Anesthesia/Blood Transfusion Reactions: No Reported Reaction Smoking Status: Former smoker - Past Family History Father Family Medical History: Cancer Additional Family Medical History / Comment(s): Father of pancreatic cancer at the age of 62 yrs. Mother Family Medical History: No Reported History Additional Family Medical History / Comment(s): Mother was healthy. Medications and Allergies Home Medications Medication Instructions Recorded Confirmed Type Ascorbic Acid [Vitamin C] 500 mg PO DAILY 12/06/21 12/06/21 History Cholecalciferol [Vitamin D3 (25 25 mcg PO DAILY 12/06/21 12/06/21 History Mcg = 1000 Iu)] Cyanocobalamin (Vitamin B-12) 1,000 mcg PO DAILY 12/06/21 12/06/21 History [Vitamin B-12] Levothyroxine Sodium [Synthroid] 150 mcg PO DAILY 12/06/21 12/06/21 History amLODIPine [Norvasc] 10 mg PO DAILY 12/06/21 12/06/21 History Allergies Allergy/AdvReac Type Severity Reaction Status Date / Time No Known Allergies Allergy Verified 12/06/21 12:22 Physical Exam Vitals: Vital Signs Temp Pulse Resp BP Pulse Ox 12/07/21 06:08 72 16 158/84 98 12/07/21 02:23 78 16 148/79 98 12/06/21 21:00 78 16 147/98 98 12/06/21 17:56 97.5 F L 76 18 139/91 99 12/06/21 15:10 79 18 99 12/06/21 15:00 74 18 148/92 98 12/06/21 14:10 74 18 150/81 99 Results 12/06/21 10:21 12/07/21 06:32 Comprehensive Metabolic Panel 12/07/21 Range/Units 06:32 Sodium 140 (137-145) mmol/L Potassium 3.9 (3.5-5.1) mmol/L Chloride 104 (98-107) mmol/L Carbon Dioxide 27 (22-30) mmol/L BUN 16 (9-20) mg/dL Creatinine 1.07 (0.66-1.25) mg/dL Glucose 112 H (74-99) mg/dL Calcium 9.7 (8.4-10.2) mg/dL Current Medications Generic Name Dose Route Start Last Admin Trade Name Yordan PRN Reason Stop Dose Admin Amlodipine Besylate 10 mg 12/07/21 09:00 12/07/21 09:41 Amlodipine 10 Mg Tab PO 10 mg DAILY MIGUEL Administration Ascorbic Acid 500 mg 12/07/21 09:00 12/07/21 09:40 Ascorbic Acid 500 Mg Tab PO 500 mg DAILY MIGUEL Administration Aspirin 81 mg 12/07/21 09:00 12/07/21 09:41 Aspirin 81 Mg PO 81 mg DAILY MIGUEL Administration Cholecalciferol 25 mcg 12/07/21 09:00 12/07/21 09:40 Cholecalciferol 25 Mcg (1000 Iu) Tablet PO Not Given DAILY MIGUEL Cyanocobalamin 1,000 mcg 12/07/21 09:00 12/07/21 09:39 Cyanocobalamin 500 Mcg Tab PO Not Given DAILY MIGUEL Famotidine 20 mg 12/06/21 21:00 12/07/21 09:36 Famotidine 20 Mg/2 Ml Vial IV Not Given Q12HR MIGUEL Heparin Sodium (Porcine) 5,000 unit 12/06/21 21:00 12/07/21 09:41 Heparin Sodium,Porcine/Pf 5,000 Unit/0.5 Ml Syringe SQ 5,000 unit Q12HR MIGUEL Administration Sodium Chloride 1,000 mls @ 100 mls/hr 12/06/21 13:15 12/07/21 11:58 Saline 0.9% IV Not Given .Q10H MIGUEL Levothyroxine Sodium 150 mcg 12/07/21 06:30 12/07/21 06:27 Levothyroxine 75 Mcg Tab PO 150 mcg DAILY@0630 MIGUEL Administration Lorazepam 2 mg 12/06/21 17:51 12/07/21 10:15 Lorazepam 2 Mg/Ml Inj IV 2 mg ONCE PRN Administration Anxiety 12/06/21 10:21 12/07/21 06:32
--- NOTE | 2021-12-08 11:35 | P.PN ---
Subjective Progress Note Date: 12/08/21 This 71-year-old male who presented to the emergency department with complaints of visual changes to his right eye. He stated he had black insect he will her right eye was not able to see. States it has continuously been improving. He denies any other focal deficits. He had a CT angiogram of the head and neck that showed 70% stenosis of the right ICA however there was discordant findings with the carotid ultrasound showing no significant stenosis bilaterally. He did have a MRI of the brain yesterday with reported findings of focal acute lacunar infarcts along the right central sulcus her thought to be present. Moderate diffuse cerebral atrophy with severe nonspecific white matter changes favored on the basis of product of chronic small vessel ischemic change in patient of this age and old right cerebellar infarct redemonstrated. Today patient mentions that he has [facility] This is something he did not mention yesterday. Ophthalmology was consulted and saw the patient yesterday stating that there was a vitreous hemorrhage however he was not able to determine the source or cause at the bedside and recommend outpatient follow-up. Neurology states acute stroke small size cortical involving right central sulcus likely embolic in nature. Patient is stating he does not believe that he has carotid disease and is ready for discharge. Objective - Vital Signs Vital signs: Vital Signs Temp 97.5 F L 12/08/21 04:00 Pulse 71 12/08/21 04:00 Resp 16 12/08/21 04:00 BP 160/89 12/08/21 04:00 Pulse Ox 95 12/08/21 04:00 Intake & Output 12/07/21 12/08/21 12/08/21 18:59 06:59 18:59 Intake Total 480 120 Balance 480 120 Intake: Oral 480 120 Other: Voiding Method Toilet # Voids 1 0 - Exam General appearance: The patient is alert, oriented, appears in no acute distress. HET: Head is normocephalic and atraumatic. Neck: Supple without lymphadenopathy. Trachea midline. Extremities: Normal skin color and turgor. No cyanosis, rash, ulceration, clubbing, or edema. Radial pulses +2 bilaterally. Neurological: Speech is fluent, patient is able to answer questions appropriately and follow commands. Facial symmetry, and normal strength and muscle tone. - Labs CBC & Chem 7: 12/06/21 10:21 12/07/21 06:32 Labs: Abnormal Lab Results - Last 24 Hours (Table) 12/07/21 Range/Units 06:32 Triglycerides 226.00 H (0.00-149.00) mg/dL VLDL Cholesterol, Calc 45.20 H (5.00-40.00) mg/dL HDL Cholesterol 31.50 L (40.00-60.00) mg/dL Assessment and Plan Assessment: 1. Right vision loss 2. No hemodynamically significant stenosis bilaterally. Right ICA and left ICA stenosis less than 50% per Carotid duplex up with discordant findings from CTA suggesting findings of 70% stenosis at the origin of the right ICA 3. Acute stroke, small size cortical involving the right central sulcus 4. History of TIA 5. History of hypertension 6. History of hyperlipidemia Plan: 1. Carotid ultrasound ordered and reviewed 2. Recommend MRA of the neck while in hosptial for further evaluation of carotid arteries as discordant findings between CTA of the neck and carotid duplex study. The patient is declining at this time to have any further studies done. Discussed importance of having further imaging and evaluation if patient is declining at this time can do outpatient. 3. Continue with recommendations from neurology 4. Continue aspirin, add statin 5. Follow up with vascular surgery upon discharge. No acute vascular surgical intervention indicated. Patient is cleared for discharge from vascular surgery as he is declining MRA of the neck. Thank you for this consultation, and allowing us take part in the plan of care of your patient during his hospital stay The impression and plan of care has been dictated as directed. Dr. Brennan I performed a history and examination of this patient, discussed the same with the dictator. I agree with the dictator's note ,documented as a scribe. Any additional findings or plans will be noted.
[2021-12-08] MEDS ORDERED: LORazepam 2 MG/ML INJ IV STA (13:19)
--- NOTE | 2021-12-08 14:14 | MR ---
EXAMINATION TYPE: MR angio neck wo/w con DATE OF EXAM: 12/08/2021 COMPARISON: Carotid ultrasound from yesterday. CTA neck from 2 days ago. HISTORY: Right ICA stenosis. Abnormal CT and ultrasound. Patient admitted with acute onset neuro defi cit or right-sided vision loss 2 days ago. TECHNIQUE: Time of flight images focusing on the [place] were performed without contrast.. 2-D and 3-D postprocessing imaging is performed on independent workstation and reviewed. FINDINGS: Redemonstration of three-vessel origin from aortic arch without significant stenosis. Redem onstration of right common carotid artery show normal origin from right brachiocephalic artery. No si gnificant focal stenosis in either common carotid artery. Correlating with CT there is most prominent stenosis at origin of right internal carotid artery right after carotid bulb narrowing to 2.7 mm mara ge 63 series 701 with reconstitution tor 4.0 mm distal to this. Stenosis is measured under 50% and co rrelates with ultrasound and CTA findings in retrospect. No significant stenosis in either internal c arotid artery. Patent external carotid arteries bilaterally without significant stenosis. There are c odominant vertebral arteries patent to basilar junction without significant stenosis IMPRESSION: No significant stenosis in common or internal carotid arteries bilaterally. Most prominen t narrowing origin of right internal carotid artery has stenosis under 50%.
[2021-12-08 15:55] VITALS: BP 138/81; PULSE 82; TEMP 97.5
--- NOTE | 2021-12-08 22:50 | P.DS ---
Providers Date of admission: 12/06/21 13:08 Attending physician: Moses Johnson MD Consults: 12/06/21 13:09 Consult Physician Routine Consulting Provider: Primo Bellamy Consult Reason/Comments: Right eye vision loss Do you want consulting provider notified?: Already Contacted Consult Physician Routine Consulting Provider: Mela Brewer Consult Reason/Comments: Right eye vision loss Do you want consulting provider notified?: Already Contacted Consult Physician Urgent Consulting Provider: Noreen Avila Consult Reason/Comments: right ICA stenosis Do you want consulting provider notified?: Yes Consult Physician Urgent Consulting Provider: Mela Brewer Consult Reason/Comments: stroke, right eye Do you want consulting provider notified?: Yes 12/06/21 13:10 Consult Physician Urgent Consulting Provider: Primo Bellamy Consult Reason/Comments: right eye vission loss Do you want consulting provider notified?: Yes 12/07/21 13:11 Consult Physician Urgent Consulting Provider: Edith Holly Consult Reason/Comments: sever with stroke Do you want consulting provider notified?: Yes Primary care physician: [facility] Hospital Course: Diagnoses: New acute partial loss of vision of the right eye blind spots, mostly secondary to vitreous hemorrhage vs stroke. Improving but not completely resolved upon discharge Acute stroke, small size involving the right central sulcus Suspected stenosis of the right ICA on CTA of the neck however MRA of the neck Shows no significant stenosis, cleared by vascular surgery. Follow-up as an outpatient Severe aortic stenosis, cleared by maintenance engineer oil field for discharge and follow-up with Dr. Holly as an outpatient Hypertension History of hypothyroidism Hospital course This is a pleasant 71 years old male with past medical history of hypertension, hypothyroidism. And he follows up with the [facility] who comes with sudden partial loss of vision in his right eye which is gradually improving now. Patient states when day earlier to presentation at 8:30 in the morning while he was watching TV he noticed he was losing focus and blind spot about 50-75% of his right eye vision, this is an gradually decreased to less than 25% on discharge as per patient. No associated headache or diplopia of blurred vision, no weakness or numbness. No difficulty talking or slurred speech. CT of the brain: No acute process. Has degenerative changes, possible remote ischemia CTA of the head and neck: Findings suggest a significant approximate 70% stenosis of the origin of the right internal carotid artery. MRI of the brain: Focal acute lacunar infarcts along the right central substance. Old right cerebellar infarct Carotid duplex no specific stenosis. I discussed the case with vascular surgery, they told me they offered surgical intervention for his suspected stenosis but he declined and preferred to follow up as an outpatient,so they recommended to MRA of the carotid artery as an outpatient. However because the patient's was reluctant to take Plavix on the top of aspirin for secondary prevention from future stroke , then with the neurologist recommended that MRA of the neck to be done as an inpatient, and result came back today showing No significant stenosis in common or internal carotid arteries bilaterally. Most prominent narrowing in origin of the right internal carotid artery has a stenosis and 50%. Neurologist recommended aspirin 81 mg daily daily, plus Plavix 75 mg daily for 21 days, however when I talked to the patient this morning he did not want to take Plavix. Risks including but not limited to recurrent stroke, organ dysfunction, paralysis and/or are explained to him as well as the risk of this medication including but not limited to bleeding into the brain, bleeding into the eye, GI bleeds. He verbalized understanding and he still was reluctant to take the Plavix Dr. Bellamy evaluated the patient yesterday, And he found small vitreous hemorrhage in the right eye inferior to the macula. As such Dr. Bellamy recommended patient to follow up as an outpatient for more detail examination in his office. I spoke with Dr. Andrews this morning and they cleared the patient for discharge, also he told me there is no contraindication from his side to give aspirin and/or Plavix if needed. Also he recommended that the patient go to see him in his [place] office either this evening or tomorrow morning, I relayed these recommendations to the patient upon discharge, he told me he cannot make it this evening and he preferred to go tomorrow morning, he asked for referral which is provided for the patient's, see discharge instruction patient was concerning that he he will need a [facility] as well for [facility] reasons, I instructed the patient to go see Dr. Bellamy this evening or tomorrow morning because he was expecting him as he informed me I emphasized the importance of follow-up with aemt as above. Risks including but not limited to vision loss are explained for the patient and he verbalized understanding. Other blood work showed unremarkable hemoglobin A1c 5.7%, vitamin B12 581, folate 8.2, TSH 0.48, ESR normal at 11 and CRP less than 0.5 and LDL 116. Patient was started on Lipitor 40 mg. Neurologist evaluated the patient and followed him closely while in-house, today I discussed the case in details with the neurologist Oriana, and he recommended MRA of the carotid arteries today and with unremarkable results as above he told me he is clear from neurology point of view for discharge with recommendation to be discharged on aspirin 81 mg which the patient agrees to take. Risks and benefits are explained to the patient in details. He told me he has already baby aspirin at home however prescription is provided for him upon discharge. I discussed the case with Emory from vascular surgery team of Dr. Abel and they cleared him for discharge and follow-up as an outpatient Also echocardiogram showed severe aortic stenosis, however patient is asymptomatic, for example no chest pain or dyspnea or syncope. Patient states that his maintenance engineer oil field Dr. Holly already knows about it. Cardiology consult was obtained whom cleared him for discharge and follow-up with his maintenance engineer oil field Dr. Holly as an outpatient. On the day of discharge patient was eager to go home from yesterday and today as well. When I walk into the room was already dressed up. He states that his right eye vision was improving, he denies any other specific symptoms, no headache or weakness or numbness. No chest pain or dyspnea. No change in urine or bowel habits. No fever Patient was cleared for discharge by all consultants including neurology, vascular surgery, ophthalmology, cardiology Problems and management plan were discussed with the patient in details and he verbalized understanding and acceptance. All patient questions were answered to his satisfaction. also asks including but not limited to recurrent stroke, organ dysfunction, paralysis and/or are explained to him Patient was found stable and can be discharged home in guarded prognosis however he needs follow-up as an outpatient. Patient was instructed [facility] and patient agrees Patient was instructed also to follow-up with aemt Dr. Bellamy at his [place] office this evening or tomorrow morning per recommendation, patient i nformed and he agrees. Also he was instructed to follow up with a neurologist as an outpatient, two neurologistsw are suggested for him Dr. Vasquez and Dr. Dawn, otherwise he needs to get up to his [facility] for referral Patient also was instructed to follow up with vascular surgeon Dr. Abel in one week and he agrees Patient instructed to follow up with his maintenance engineer oil field Dr. Holly in one week and agrees Patient agrees to call and make his own appointments Physical exam Gen: patient is a AAOx3, no distress CVS: S1-S2, RRR, no murmur Lungs: B/L CTA, no wheezing Abdomen: soft, no distention, no tenderness, positive bowel sounds Extremity: no leg edema or induration -Neuro: Cranial nerves are grossly intact, except for partial vision loss on the right eye. Strength is 5/5. Sensation is intact. Gait is normal Time spent more than 35 minutes Patient Condition at Discharge: Stable Plan - Discharge Summary Discharge Rx Participant: No New Discharge Prescriptions: New Aspirin 81 mg PO DAILY #30 tab Atorvastatin [Lipitor] 40 mg PO HS #30 tab Continue Levothyroxine Sodium [Synthroid] 150 mcg PO DAILY Cholecalciferol [Vitamin D3 (25 Mcg = 1000 Iu)] 25 mcg PO DAILY Ascorbic Acid [Vitamin C] 500 mg PO DAILY Cyanocobalamin (Vitamin B-12) [Vitamin B-12] 1,000 mcg PO DAILY amLODIPine [Norvasc] 10 mg PO DAILY Discharge Medication List Ascorbic Acid [Vitamin C] 500 mg PO DAILY 12/06/21 [History] Cholecalciferol [Vitamin D3 (25 Mcg = 1000 Iu)] 25 mcg PO DAILY 12/06/21 [History] Cyanocobalamin (Vitamin B-12) [Vitamin B-12] 1,000 mcg PO DAILY 12/06/21 [History] Levothyroxine Sodium [Synthroid] 150 mcg PO DAILY 12/06/21 [History] amLODIPine [Norvasc] 10 mg PO DAILY 12/06/21 [History] Aspirin 81 mg PO DAILY #30 tab 12/08/21 [Rx] Atorvastatin [Lipitor] 40 mg PO HS #30 tab 12/08/21 [Rx] Follow up Appointment(s)/Referral(s): Edith Holly MD [STAFF PHYSICIAN] - 1 Week (Office will call to set up an appointment) James Brennan DO [Doctor of Osteopathic Medicine] - 1 Week (Please call to set up a follow-up appointment; office was closed) Primo Bellamy MD [STAFF PHYSICIAN] - 1-2 Days (aemt Please see Dr. Bellamy in [place] [facility] tomorrow morning, please arrive no later than 10 am, Dr. Bellamy is only in during the morning. Bring insurance cards and backhaul driver's license. Address for [place] office: [address] [place] [address], [place] [address] ) Philip Vasquez MD [Medical Doctor] - 1 Week (neurologist) Kj Dawn MD [STAFF PHYSICIAN] - 1 Week (neurologist) [facility] [Primary Care Provider] - 12/15/21 3:30 pm () Patient Instructions/Handouts: Transcatheter Aortic Valve Replacement (GEN) Activity/Diet/Wound Care/Special Instructions: Please we recommend to go and see Dr. Bellamy at his [place] office, either this afternoon or tomorrow morning 12/09/21, phone number is [phone] Address: [address] [place] [address], [place] [address] Hours: Open Closes 4:30PM Heart healthy diet Activity is restricted till you see your doctor Discharge Disposition: HOME SELF-CARE
--- NOTE | 2021-12-09 00:22 | P.PN ---
Subjective Progress Note Date: 12/08/21 Patient was seen for a follow-up. Patient continues to have some visual field deficit/scotoma in the right eye. Patient was seen by photoresist contact printer, who diagnosed with vitreous hemorrhage. Recommending patient to follow up in the office. Patient just wants to go home. Objective - Vital Signs Vital signs: Vital Signs Temp 97.6 F 12/08/21 08:00 Pulse 75 12/08/21 08:00 Resp 18 12/08/21 08:00 BP 155/81 12/08/21 08:00 Pulse Ox 97 12/08/21 08:00 Intake & Output 12/07/21 12/08/21 12/08/21 18:59 06:59 18:59 Intake Total 480 120 Balance 480 120 Intake: Oral 480 120 Other: Voiding Method Toilet # Voids 1 0 - Exam Patient's mental status, speech and language functions are normal. Cranial nerves are essentially normal. Visual hastings are full on confrontation in all 4 quadrants. Face has mild flattening of the left nasolabial fold, which is somewhat baseline. Muscle strength shows no drift. The strength is normal. No ataxia. Tone and bulk of muscles normal sensations normal. - Labs CBC & Chem 7: 12/06/21 10:21 12/07/21 06:32 Labs: Abnormal Lab Results - Last 24 Hours (Table) 12/07/21 Range/Units 06:32 Triglycerides 226.00 H (0.00-149.00) mg/dL VLDL Cholesterol, Calc 45.20 H (5.00-40.00) mg/dL HDL Cholesterol 31.50 L (40.00-60.00) mg/dL Assessment and Plan Assessment: * New-onset visual scotoma right eye, in the cecocentral vision. Patient diagnosed with vitreous hemorrhage in the right eye. Symptoms have improved 50%, but still present. * Acute stroke, small size cortical involving the right central sulcus, likely embolic in nature (not lacunar). * Right ICA stenosis, 70% at its origin, possible symptomatic. However carotid Doppler showed no significant stenosis. * Hypertension * Hyperlipidemia * Medication noncompliance, stopped taking blood pressure medication 4-5 months ago. Plan: * MRI of the brain confirmed a small acute ischemic stroke, involving the right central sulcus. Likely embolic in nature. * 2-D echo revealed normal left ventricular size. Moderate concentric LVH. EF is between 55-60%. Left atrium is moderately dilated. Trace to mild AR. Severe aortic stenosis. Moderate mitral annular calcification. Suggest cardiology consultation for severe aortic stenosis. Patient seen by dori doe, recommending outpatient workup. * Carotid Doppler revealed atherosclerotic changes with no significant hemodynamic stenosis. Antegrade flow in both vertebral arteries. Significant discordant findings between CTA versus carotid Doppler ultrasound. Vascular surgery to follow. I had a prolonged discussion with the patient. Patient finally agreed to pursue MRA of the neck. This was done, which revealed no significant stenosis in, nor internal carotid arteries bilaterally. Most prominent narrowing or region of the right ICA had stenosis under 50%. * Fasting a.m. lipid panel with cholesterol 193, LDL 116, HDL 31 and triglycerides 226. Patient will be started on Lipitor 40 mg daily. * Hemoglobin A1c 5.7. * ESR normal 11, CRP <0.5 normal. B12 581, folate 8.2. * Patient was initially placed on dual antiplatelet medication. However because of vitreous hemorrhage, Plavix was discontinued. Patient to stay on aspirin 81 mg daily. Patient adamant that he does not want to take Plavix. * Ophthalmology input appreciated. * Neurologically clear for discharge.
== END 2021-12-08 17:18 | disposition home or self-care (01) | DRG 66 ==
LOC: EC 09:28 → 3SCARD 13:08
PROVIDERS: ADMIT Internal Medicine; ATTEND Internal Medicine
DX: I63.40 Cerebral infarction due to embolism of unspecified cerebral artery (principal); H43.11 Vitreous hemorrhage, right eye; I65.23 Occlusion and stenosis of bilateral carotid arteries; E78.5 Hyperlipidemia, unspecified; I08.3 Combined rheumatic disorders of mitral, aortic and tricuspid valves; E89.0 Postprocedural hypothyroidism; Z20.822 Contact with and (suspected) exposure to COVID-19; I10 Essential (primary) hypertension; H53.40 Unspecified visual field defects; H54.61 Unqualified visual loss, right eye, normal vision left eye; M19.90 Unspecified osteoarthritis, unspecified site; I27.20 Pulmonary hypertension, unspecified; I49.3 Ventricular premature depolarization; Z79.82 Long term (current) use of aspirin; Z79.890 Hormone replacement therapy; Z79.899 Other long term (current) drug therapy; Z80.0 Family history of malignant neoplasm of digestive organs; Z86.73 Personal history of transient ischemic attack (TIA), and cerebral infarction without residual deficits; Z87.891 Personal history of nicotine dependence; Z91.14 Patient's other noncompliance with medication regimen; Z87.01 Personal history of pneumonia (recurrent)
CPT/HCPCS: 36415; 70450; 70496; 70498; 70549; 70551; 80048; 80053; 80061; 82607; 82746; 83036; 84443; 85025; 85610; 85652; 85730; 86140; 87635; 93005; 93306; 93880; 96361; 96372; 96374; 99285